=== PATIENT | female | born 1975 | race Caucasian/White ===

== ENCOUNTER 2019-05-19 10:07 | Outpatient (CLI) | payer OTHER ==
[2019-05-19] MEDS ORDERED: IOVERSOL 320 100 ML VIAL IVP ONE ×2 (10:25→10:36)
[2019-05-19] MEDS ORDERED: GADOBUTROL 10 MMOL/10 ML VIAL ONE (11:03)
[2019-05-19] MEDS ORDERED: GADOBUTROL 10 MMOL/10 ML VIAL IVP ONE (11:18)
--- NOTE | 2019-05-22 09:31 | CT Report ---
Reason: ABNORMAL FINDINGS ON DIAGNOSTIC IMAGING OF LUNG Procedure Date: 05/19/2019 Accession Number: [id number] / [id number] Procedure: CT - CHEST W CPT Code: FULL RESULT: EXAM: CT CHEST WITH CONTRAST. EXAM DATE: 05/19/2019 10:38 AM. CLINICAL HISTORY: Abnormal findings on diagnostic imaging of lung. COMPARISONS: The referenced chest radiograph is not available for comparison. TECHNIQUE: Routine helical CT imaging was performed through the chest. IV contrast: 80 mL Optiray 320. Reconstructions: Coronal and sagittal. In accordance with CT protocol optimization, one or more of the following dose reduction techniques were utilized for this exam: automated exposure control, adjustment of mA and/or KV based on patient size, or use of iterative reconstructive technique. FINDINGS: Lungs/Pleura: Incidentally noted are scattered pulmonary nodules measuring 3 mm or less. For example, 2 mm nodule in right upper lobe image 37 series 4, 1.5 mm right lower lobe nodule image 49, left lower lobe nodule 1.5 mm image 48, left lower lobe 1.5 mm nodule image 41. No bronchial thickening, consolidation, or edema. Pulmonary vasculature is normal. No pericardial or pleural effusion. No pneumothorax. Mediastinum: Normal. No adenopathy or masses. The heart and great vessels are normal. Bones: Unremarkable. Visualized Abdomen: A 2.5 cm arterially hyper-perfusing right hepatic lesion, not characterized. Splenic cyst is noted. Breast implants are noted. Other: None. IMPRESSION: Arterially enhancing hepatic lesion, not characterized on this examination. Recommend follow-up of the described nodule(s) according to the following guidelines: Fleischner Society Recommendations 2017 MacMahon et al. Radiology 2017 Solid Nodules-Low Risk Patients: <6 mm (single or multiple) - No routine follow-up* Solid Nodules-High Risk Patients: <6 mm (single or multiple) -Optional CT at 12 months* *Nodules < 6mm do not require routine follow-up, but suspicious nodule morphology, upper lobe location, or both may warrant 12 month follow-up [facility]
--- NOTE | 2019-05-22 10:19 | MRI Report ---
Reason: ABNORMAL FINDINGS ON DIAGNOSTIC IMAGING OF LUNG Procedure Date: 05/19/2019 Accession Number: [id number] / [id number] Procedure: MRI - Abdomen W/WO CPT Code: FULL RESULT: EXAM: MR ABDOMEN WITH AND WITHOUT CONTRAST (MR LIVER) EXAM DATE: 05/19/2019 11:52 AM. CLINICAL HISTORY: ABNORMAL FINDINGS ON DIAGNOSTIC IMAGING OF LUNG. COMPARISON: CHEST W/ 05/19/2019 10:29 AM. TECHNIQUE: Multiplanar breath-hold T1, T2, and DWI sequences obtained through the abdomen on an MR scanner. Images obtained before and after administration of 7 cc Gadavist intravenous contrast. Multiphase postcontrast images obtained of the liver and abdomen. FINDINGS: Lung Bases: Unremarkable. Liver: The liver has normal size, morphology, overall signal and enhancement. No evidence of steatosis. In segment 6, there is a 2.6 x 1.8 cm circumscribed mass with slightly lobular margins showing marked T2 hyperintensity, moderate T1 hypointensity, free water diffusion, near-complete arterial phase hyperenhancement, and portal venous phase is complete enhancement isointense to blood pool, characteristic of a cavernous hemangioma. No other focal lesions are identified. Gallbladder: The gallbladder is partially distended and appears normal with no wall thickening or stone. Bile ducts: No intrahepatic or extrahepatic duct dilatation Pancreas: The pancreas appears normal with no mass or ductal dilatation. Spleen: The spleen appears normal. There is a 1.4 cm simple cyst posteriorly. Kidneys: The kidneys appear normal with no mass or hydronephrosis. Adrenals: The adrenals appear normal. Bowel: The visualized segments of the small bowel and colon appear normal with no inflammation or obstruction. Retroperitoneum: The retroperitoneal structures appear normal with no mass or lymphadenopathy. Other: Incompletely visualized bilateral breast implants. IMPRESSION: 2.6 x 1.8 cm cavernous hemangioma in hepatic segment 6. [facility]
== END 2019-05-19 10:08 | disposition home or self-care (01) ==
LOC: DI 10:07
PROVIDERS: ATTEND Allergy & Immunology
DX: R91.8 Other nonspecific abnormal finding of lung field (principal); D18.03 Hemangioma of intra-abdominal structures
CPT/HCPCS: 71260; 74183; A9585; Q9967